=== PATIENT | male | born 1970 | race Hispanic/Latino ===

== ENCOUNTER 2016-06-20 11:40 | Emergency (ER) | payer SELFPAY ==
[2016-06-20 12:02] VITALS: BP 136/88; RESP 18; TEMP 98.5; O2SAT 100
--- NOTE | 2016-06-20 12:23 | C.PDOC ---
History Of Present Illness A 46 year old male comes in c/o pain and swelling to the lower right jaw since yesterday. Patient notes the pain as a 10/10 with association of swelling and tenderness to the angle of the jaw. Patient denies fever, chills, nausea, vomiting, trauma, or any other complaints. Time Seen by Provider: 06/20/16 11:57 Chief Complaint (Nursing): Dental Pain History Per: Patient History/Exam Limitations: no limitations Onset/Duration Of Symptoms: Days Current Symptoms Are (Timing): Still Present Severity: Severe Pain Scale Rating Of: 10 Quality: Positive for: "Pain" Recent travel outside of the [place]: No Additional History Per: Patient Past Medical History Reviewed: Historical Data, Nursing Documentation, Vital Signs Vital Signs: Last Vital Signs Temp 98.5 F 06/20/16 11:56 Pulse 86 06/20/16 11:56 Resp 18 06/20/16 11:56 BP 136/88 06/20/16 11:56 Pulse Ox 100 06/20/16 12:25 - Medical History PMH: Anxiety, Bronchitis, COPD, Depression, Gastritis, HTN, Seizures - [facility] Procedures APPLICATION OF SPLINT (09/30/14) Family History: States: Unknown Family Hx - Social History Hx Tobacco Use: Yes Hx Alcohol Use: Yes (No longer drinks alcohol.) Hx Substance Use: Yes (stopped many yrs ago) - Immunization History Hx Tetanus Toxoid Vaccination: Yes Hx Influenza Vaccination: Yes Hx Pneumococcal Vaccination: No Review Of Systems Except As Marked, All Systems Reviewed And Found Negative. Constitutional: Negative for: Fever, Chills, Other (Trauma) Gastrointestinal: Negative for: Nausea, Vomiting Musculoskeletal: Positive for: Other (Lower right jaw pain and swelling) Physical Exam - Physical Exam Appears: Non-toxic, No Acute Distress Skin: Warm, Dry Head: Atraumatic, Normacephalic Eye(s): bilateral: Normal Inspection Teeth: No Normal Dentition (Poor dentition), Caries (Muiltple dental cavities), Tender To Palpation, Other (Black teeth and tenderness. Dental abcess to othe lower jaw, non-fluctuance and no discharge.) Throat: Normal, No Exudate Neurological/Psych: Oriented x3, Normal Speech, Normal Cognition ED Course And Treatment O2 Sat by Pulse Oximetry: 100 (RA) Pulse Ox Interpretation: Normal Medical Decision Making Medical Decision Making: Impression: A 46 y/o male c/o right lower jaw pain and swelling since yesterday. Plans: -Harsh -Lucio-JM -Ultram -Reassess and disposition Disposition Counseled Patient/Family Regarding: Diagnosis, Need For Followup, Rx Given - Disposition Disposition: HOME/ ROUTINE Disposition Time: 12:22 Condition: GUARDED Additional Instructions: You need to follow up with dental services right away. Take you antibiotics. Return to the Emergency Department if you develop fever or any other concerns. Prescriptions: Penicillin VK [Pen-Vee K] 2 tab PO BID #28 tab traMADol/Acetaminophen [Ultracet 37.5/325 mg] 1 tab PO TID PRN #20 tab PRN Reason: pain Instructions: Dental Abscess (ED) Forms: General Discharge Instructions - POA Present On Arrival: None - Clinical Impression Clinical Impression: Dental abscess, Dental cavity
[2016-06-20 12:46] VITALS: PULSE 75
== END 2016-06-20 12:47 | disposition home or self-care (01) ==
LOC: SUPCPDRO 11:40 → C.ER 11:40
DX: K02.9 Dental caries, unspecified (principal); K04.7 Periapical abscess without sinus

== ENCOUNTER 2016-08-12 17:38 | Emergency (ER) | payer MEDICAID, OTHER ==
[2016-08-12 17:49] VITALS: BMI 21.2
[2016-08-12 17:53] VITALS: PULSE 76
--- NOTE | 2016-08-12 19:40 | C.PDOC ---
History Of Present Illness 46 year old male presents to the ED with complaints of headache and feeling tired after having a seizure today. Patient states he had a seizure witnessed by a friend who turned him onto his side. He notes a history of seizures with the last seizure being 8 months ago. Patient also notes running out of his medications for his seizures two days ago. He denies the use of any new medications, dysuria, fever, or head trauma. He states he feels well now and states he feels the same as he always does after seizure. Time Seen by Provider: 08/12/16 19:07 Chief Complaint (Nursing): Seizure Past Medical History Vital Signs: Last Vital Signs Temp 98.6 F 08/12/16 19:52 Pulse 76 08/12/16 19:52 Resp 18 08/12/16 19:52 BP 129/77 08/12/16 19:52 Pulse Ox 97 08/12/16 20:41 - Medical History PMH: Anxiety, Bronchitis, COPD, Depression, Gastritis, HTN, Seizures - [facility] Procedures APPLICATION OF SPLINT (09/30/14) Family History: States: Unknown Family Hx - Social History Hx Tobacco Use: Yes Hx Alcohol Use: No (No longer drinks alcohol.) Hx Substance Use: No (stopped many yrs ago) - Immunization History Hx Tetanus Toxoid Vaccination: Yes Hx Influenza Vaccination: Yes Hx Pneumococcal Vaccination: No Review Of Systems Except As Marked, All Systems Reviewed And Found Negative. Constitutional: Negative for: Fever Cardiovascular: Negative for: Chest Pain Physical Exam - Physical Exam Additional Physical Exam Comments: Constitutional: No acute distress. Head: Normocephalic. Atraumatic. Eyes: PERRL. EOMI. ENT: Moist mucous membranes. Normal appearing tongue with no bite. Neck: Supple. Normal ROM. Cardiovascular: Regular rate. Radial pulse 2+ bilaterally. Chest: No tenderness. Respiratory: Clear to auscultation bilaterally. GI: Soft. Nontender. Nondistended. Back: No CVA tenderness. Musculoskeletal: No tenderness or swelling of extremities. Skin: No rash. Neurologic: Alert, no focal deficit. Normal speech. Normal cognition. Normal motor. Normal sensation to light touch. Gait steady. ED Course And Treatment O2 Sat by Pulse Oximetry: 97 (room air ) Medical Decision Making Medical Decision Making: Patient with seizure disorder with seizure today, not on medication for 2 days, states he can follow up with PMD for refill this week, will give short term refill and 1 dose here. Patient without other symptoms concerning for other cause. Discharged home, return to ER for worsening pain, dyspnea, vomiting, fever, stiff neck, recurrent seizure, or any other problem. Disposition - Disposition Disposition: HOME/ ROUTINE Disposition Time: 19:40 Condition: STABLE Prescriptions: carBAMazepine [TEGretol] 200 mg PO BID #14 tab Instructions: Epilepsy (ED) - Clinical Impression Clinical Impression: Seizure - Scribe Statement The provider has reviewed the documentation as recorded by the Maggieibcate Wagner All medical record entries made by the Emilio were at my direction and personally dictated by me. I have reviewed the chart and agree that the record accurately reflects my personal performance of the history, physical exam, medical decision making, and the department course for this patient. I have also personally directed, reviewed, and agree with the discharge instructions and disposition.
[2016-08-12 19:52] VITALS: BP 129/77; RESP 18; TEMP 98.6
[2016-08-12 20:37] VITALS: O2SAT 97
--- NOTE | 2016-08-16 11:06 | CARD ---
APPROVED REPORT EKG Measurement Heart [id number] <Conclusion> Normal sinus rhythm ST elevation, probably due to early repolarization Borderline ECG
== END 2016-08-12 19:52 | disposition home or self-care (01) ==
LOC: C.ER 17:38
DX: R56.9 Unspecified convulsions (principal)

== ENCOUNTER 2016-09-24 02:31 | Emergency (ER) | payer MEDICAID, OTHER ==
[2016-09-24 02:32] VITALS: BMI 20.5
--- NOTE | 2016-09-24 04:16 | C.PDOC ---
History Of Present Illness 46 y/o male presents to emergency department with complaints of cough and chest congestion for 9 days. Patient states he was taking Theraflu with mild relief, but symptoms persisted. Patient also c/o mild SOB when he lies down, but no SOB otherwise. Denies fever, sick contacts, or recent travel. Time Seen by Provider: 09/24/16 02:51 Chief Complaint (Nursing): Cough, Cold, Congestion History Per: Patient History/Exam Limitations: no limitations Onset/Duration Of Symptoms: Days Current Symptoms Are (Timing): Still Present Sick Contacts (Context): None Associated Symptoms: Cough. denies: Fever, Vomiting, Diarrhea Recent travel outside of the [place]: No Past Medical History Reviewed: Historical Data, Nursing Documentation, Vital Signs Vital Signs: Last Vital Signs Temp 97.9 F 09/24/16 02:41 Pulse 80 09/24/16 02:41 Resp 14 09/24/16 02:41 BP 112/68 09/24/16 02:41 Pulse Ox 95 09/24/16 04:18 - Medical History PMH: Anxiety, Bronchitis, COPD, Depression, Gastritis, HTN, Seizures - [facility] Procedures APPLICATION OF SPLINT (09/30/14) Family History: States: Unknown Family Hx - Social History Hx Tobacco Use: Yes Hx Alcohol Use: No (No longer drinks alcohol.) Hx Substance Use: No (stopped many yrs ago) - Immunization History Hx Tetanus Toxoid Vaccination: Yes Hx Influenza Vaccination: Yes Hx Pneumococcal Vaccination: No Review Of Systems Except As Marked, All Systems Reviewed And Found Negative. Constitutional: Negative for: Fever, Chills ENT: Negative for: Throat Pain, Throat Swelling Cardiovascular: Negative for: Chest Pain, Palpitations Respiratory: Positive for: Cough, Other (+chest congestion). Negative for: Shortness of Breath, Wheezing Gastrointestinal: Negative for: Nausea, Vomiting, Abdominal Pain, Diarrhea Skin: Negative for: Rash Neurological: Negative for: Headache, Dizziness Physical Exam - Physical Exam Appears: Non-toxic, No Acute Distress Skin: Normal Color, Warm, Dry Head: Atraumatic, Normacephalic Oral Mucosa: Moist Throat: Normal, No Erythema, No Exudate Neck: Supple Chest: Symmetrical Cardiovascular: Rhythm Regular Respiratory: No Accessory Muscle Use, Rhonchi, No Wheezing, Other (chest congestion) Gastrointestinal/Abdominal: Soft, No Tenderness, No Guarding, No Rebound Back: Normal Inspection Extremity: Normal ROM, Capillary Refill (< 2 sec. ) Extremity: Bilateral: Normal Color And Temperature Neurological/Psych: Oriented x3, Normal Speech, Normal Cognition ED Course And Treatment O2 Sat by Pulse Oximetry: 95 (RA) Pulse Ox Interpretation: Normal - Radiology CXR: Interpreted by Me CXR Interpretation: Yes: Infiltrates (Right Lower Lobe) Progress Note: CxR and plan of treatment discussed with patient, who agrees with plan. Pt instructed to return to ER w/o fail if chest or back pain, SOB, fever, hemoptysis or worse Disposition - Disposition Referrals: [facility] at [facility] [Outside] Disposition Time: 04:44 Condition: STABLE Additional Instructions: Increase PO fluids Take all meds prescribed Follow up with PMD or clinic Return to ER if worse Prescriptions: Albuterol HFA [Ventolin HFA 90 mcg/actuation (8 g)] 2 puff IH QID #1 inhaler Doxycycline Hyclate 100 mg PO BID #14 capsule predniSONE [Prednisone] 40 mg PO DAILY #8 tab Promethazine/Codeine [Codeine/Promethazine 10 MG/5 Ml-6.25 MG/5 Ml] 5 ml PO QID #100 ml Instructions: Bacterial Pneumonia (ED) Forms: [employer] (Indian) - Clinical Impression Clinical Impression: Pneumonia - PA / SILVER CHASER / Resident Statement MD/DO has reviewed & agrees with the documentation as recorded. - Scribe Statement The provider has reviewed the documentation as recorded by the Scribe Kem Prieto All medical record entries made by the Scribe were at my direction and personally dictated by me. I have reviewed the chart and agree that the record accurately reflects my personal performance of the history, physical exam, medical decision making, and the department course for this patient. I have also personally directed, reviewed, and agree with the discharge instructions and disposition.
[2016-09-24] MEDS ORDERED: cefTRIAXone (Rocephin) 250 mg Inj IM STA (04:18)
[2016-09-24] MEDS ORDERED: cefTRIAXone 1 gm in Water For Injection 2.1 ML IM ONE (04:19)
[2016-09-24] MEDS ORDERED: Promethazine/Cod 6.25mg-10mg/5ml Syr UD ONE (04:45)
[2016-09-24] MEDS ORDERED: Promethazine/Cod 6.25mg-10mg/5ml Syr UD PO STA (05:00)
[2016-09-24 05:10] VITALS: BP 114/70; PULSE 76; RESP 19; TEMP 97.7; O2SAT 98
--- NOTE | 2016-09-24 08:11 | RAD ---
HISTORY: cough, SOB COMPARISON: None available. TECHNIQUE: Chest PA and lateral FINDINGS: LUNGS: Right middle and lower lobe airspace opacities suspicious for pneumonia. Please note that chest x-ray has limited sensitivity for the detection of pulmonary masses. PLEURA: No significant pleural effusion identified. No definite pneumothorax . CARDIOVASCULAR: The cardiomediastinal silhouette appears within normal limits of size. OSSEOUS STRUCTURES: No acute osseous abnormality identified. VISUALIZED UPPER ABDOMEN: Unremarkable. OTHER FINDINGS: None. IMPRESSION: Right middle and lower lobe airspace opacities suspicious for pneumonia. Recommend follow-up to assess for complete resolution.
== END 2016-09-24 05:10 | disposition home or self-care (01) ==
LOC: C.ER 02:31
DX: J18.9 Pneumonia, unspecified organism (principal); Z72.0 Tobacco use
CPT/HCPCS: 71020; 96372; 99284; J0696

== ENCOUNTER 2016-11-22 00:08 | Emergency (ER) | payer MEDICAID ==
[2016-11-22 00:08] VITALS: BMI 20.5
--- NOTE | 2016-11-22 01:31 | C.PDOC ---
History Of Present Illness 48 y/o female c/o itchy rash to the bilateral arms and right leg for 3 days. Patient suspects it to be poison elissa. Denies SOB, chest pain, fever, or chills. Time Seen by Provider: 11/22/16 01:22 Chief Complaint (Nursing): Abnormal Skin Integrity History Per: Patient History/Exam Limitations: no limitations Onset/Duration Of Symptoms: Days (3) Current Symptoms Are (Timing): Still Present Quality Of Symptoms: Itching Recent travel outside of the [place]: No Additional History Per: Patient Past Medical History Reviewed: Historical Data, Nursing Documentation, Vital Signs Vital Signs: Last Vital Signs Temp 98.6 F 11/22/16 01:40 Pulse 71 11/22/16 01:40 Resp 16 11/22/16 01:40 BP 105/66 11/22/16 01:40 Pulse Ox 98 11/22/16 01:40 - Medical History PMH: Anxiety, Bronchitis, COPD, Depression, Gastritis, HTN, Seizures - [facility] Procedures APPLICATION OF SPLINT (09/30/14) Family History: States: Unknown Family Hx - Social History Hx Tobacco Use: Yes Hx Alcohol Use: No (No longer drinks alcohol.) Hx Substance Use: No (stopped many yrs ago) - Immunization History Hx Tetanus Toxoid Vaccination: Yes Hx Influenza Vaccination: Yes Hx Pneumococcal Vaccination: No Review Of Systems Except As Marked, All Systems Reviewed And Found Negative. Constitutional: Negative for: Fever, Chills Cardiovascular: Negative for: Chest Pain Respiratory: Negative for: Shortness of Breath Skin: Positive for: Rash Physical Exam - Physical Exam Appears: Non-toxic, No Acute Distress Skin: Warm, Dry, Rash (Linear demarkated rash to the bilateral arms, left greater than right. Some reash on the right thigh. Consistent with poison.) Head: Atraumatic, Normacephalic Cardiovascular: Rhythm Regular Respiratory: Normal Breath Sounds, No Rales, No Rhonchi, No Wheezing Neurological/Psych: Oriented x3 ED Course And Treatment O2 Sat by Pulse Oximetry: 97 (RA) Pulse Ox Interpretation: Normal Medical Decision Making Medical Decision Making: poison elissa L>R arm and R leg x 3 days temovate steroid cream applied. instructed to apply BID Disposition Doctor Will See Patient In The: Office Counseled Patient/Family Regarding: Studies Performed, Diagnosis - Disposition Referrals: [facility] [Outside] [facility] [Outside] Disposition: HOME/ ROUTINE Disposition Time: 01:33 Condition: GOOD Additional Instructions: apply Temovate ointment 0.05% to the poison elissa areas twice a day, usually for about 5 days. Cool compresses as needed. Follow-up in our Clinic as needed. Prescriptions: Clobetasol 0.05% [Temovate 0.05% OINTMENT] 15 applic EXT BID #1 tube Instructions: Poison Elissa (ED) Forms: [employer] (Micronesian) - Clinical Impression Clinical Impression: Contact dermatitis - Scribe Statement The provider has reviewed the documentation as recorded by the Scribe Wilton horowitz All medical record entries made by the Scribe were at my direction and personally dictated by me. I have reviewed the chart and agree that the record accurately reflects my personal performance of the history, physical exam, medical decision making, and the department course for this patient. I have also personally directed, reviewed, and agree with the discharge instructions and disposition.
[2016-11-22 02:49] VITALS: BP 105/66; PULSE 71; RESP 16; TEMP 98.6
[2016-11-22 03:45] VITALS: O2SAT 97
== END 2016-11-22 01:45 | disposition home or self-care (01) ==
LOC: C.ER 00:08
DX: L25.9 Unspecified contact dermatitis, unspecified cause (principal)

== ENCOUNTER 2017-01-02 18:17 | Emergency (ER) | payer MEDICAID ==
[2017-01-02 18:17] VITALS: BMI 20.5
--- NOTE | 2017-01-02 19:05 | C.PDOC ---
History Of Present Illness 46-year-old male presents to the ED complaining of body aches and fever for the past few days. Symptoms are associated with coughing, patient reports being diagnosed with pneumonia last week. Also complains of diarrhea but no vomiting or dysuria. PMD: non [facility] provider Time Seen by Provider: 01/02/17 19:00 Chief Complaint (Nursing): Flu-like Symptoms History Per: Patient History/Exam Limitations: no limitations Onset/Duration Of Symptoms: Days (x 3) Current Symptoms Are (Timing): Still Present Past Medical History Reviewed: Historical Data, Nursing Documentation, Vital Signs Vital Signs: Last Vital Signs Temp 99 F 01/02/17 20:08 Pulse 107 H 01/02/17 18:20 Resp 22 01/02/17 18:20 BP 115/82 01/02/17 18:20 Pulse Ox 100 01/02/17 20:53 - Medical History PMH: Anxiety, Bronchitis, COPD, Depression, Gastritis, HTN, Seizures - [facility] Procedures APPLICATION OF SPLINT (09/30/14) Family History: States: Unknown Family Hx - Social History Hx Tobacco Use: Yes Hx Alcohol Use: No (No longer drinks alcohol.) Hx Substance Use: No (stopped many yrs ago) - Immunization History Hx Tetanus Toxoid Vaccination: No Hx Influenza Vaccination: No Hx Pneumococcal Vaccination: No Review Of Systems Except As Marked, All Systems Reviewed And Found Negative. Constitutional: Positive for: Fever, Other (body aches) Respiratory: Positive for: Cough Gastrointestinal: Positive for: Diarrhea. Negative for: Vomiting Genitourinary: Negative for: Dysuria Physical Exam - Physical Exam Appears: Non-toxic, No Acute Distress Skin: Normal Color, Warm, Dry Head: Atraumatic, Normacephalic Eye(s): bilateral: Normal Inspection, PERRL, EOMI Neck: Normal, Supple Cardiovascular: Rhythm Regular, No Murmur Respiratory: Normal Breath Sounds, No Rales, Rhonchi Gastrointestinal/Abdominal: Normal Exam, Soft, No Tenderness Extremity: Bilateral: Atraumatic, Normal Color And Temperature, Normal ROM Neurological/Psych: Oriented x3, Normal Speech Gait: Steady ED Course And Treatment - Laboratory Results Result Diagrams: 01/02/17 19:27 01/02/17 19:27 ECG: Interpreted By Me, Viewed By Me ECG Rhythm: Sinus Tachycardia ECG Interpretation: No Acute Changes Interpretation Of ECG: Sinus tachycardia, no acute changes. Rate From EC O2 Sat by Pulse Oximetry: 100 (RA) Pulse Ox Interpretation: Normal - Radiology CXR: Interpreted by Me, Viewed By Me CXR Interpretation: Yes: No Acute Disease, Other (inc. bronchovasscular markings.). No: Infiltrates Progress Note: Ordered blood work, chest x-ray, and urinalysis. Patient given Tylenol, 975 mg PO. Pending reassessment. Disposition Counseled Patient/Family Regarding: Diagnosis - Disposition Referrals: [facility] at [facility] [Outside] Disposition: HOME/ ROUTINE Disposition Time: 20:48 Condition: STABLE Prescriptions: Azithromycin 500 mg PO DAILY #7 tablet guaiFENesin/Dextromethorphan [guaiFENesin-DM] 10 ml PO TID #120 ml Ibuprofen [Motrin] 1 tab PO TID PRN #20 tab PRN Reason: Pain Instructions: Upper Respiratory Infection (ED), Acute Bronchitis (ED), Fever in Adults (ED) Forms: [facility] (Macedonian) - POA Present On Arrival: None - Clinical Impression Clinical Impression: Upper respiratory infection, Bronchitis - Scribe Statement The provider has reviewed the documentation as recorded by the Scribcate Hawkins All medical record entries made by the Maggieibe were at my direction and personally dictated by me. I have reviewed the chart and agree that the record accurately reflects my personal performance of the history, physical exam, medical decision making, and the department course for this patient. I have also personally directed, reviewed, and agree with the discharge instructions and disposition.
[2017-01-02 19:30] LABS: BASO # 0.1 K/uL (0.0-0.2); BASO % 0.5 % (0.0-2.0); HEMATOCRIT 37.1 % (35.0-51.0); LYMPH # 1.6 K/uL (1.0-4.3); LYMPH % 13.3 % (20.0-40.0); MEAN CELL VOLUME 84.2 fL (80.0-94.0); MEAN CORPUSCULAR HEMOGLOBIN 27.5 pg (27.0-31.0); MEAN CORPUSCULAR HGB CONC 32.7 g/dL (33.0-37.0); MEAN PLATELET VOLUME 7.1 fL (7.2-11.7); MONO # 0.7 K/uL (0.0-0.8); RED CELL DISTRIBUTION WIDTH 16.3 % (11.5-14.5); WHITE BLOOD COUNT 12.1 K/uL (4.8-10.8)
[2017-01-02 19:41] LABS: RBC URINE < 1 /hpf (0-3); URINE BACTERIA FEW (<OCC); URINE BILIRUBIN NEGATIVE (NEGATIVE); URINE BLOOD NEGATIVE (NEGATIVE); URINE COLOR Yellow (YELLOW); URINE GLUCOSE (UA) NORMAL (Normal); URINE KETONE NEGATIVE (NEGATIVE); URINE LEUKOCYTE ESTERASE NEG Leu/uL (Negative); URINE PROTEIN NEGATIVE (NEGATIVE); URINE UROBILINOGEN NORMAL mg/dL (0.2-1.0); WBC URINE 1 /hpf (0-5)
[2017-01-02 19:42] LABS: ALKALINE PHOSPHATASE 143 U/L (38-126); ALT/SGPT 65 U/L (21-72); AST/SGOT 28 U/L (17-59); BILIRUBIN,TOTAL 0.5 mg/dL (0.2-1.3); BLOOD UREA NITROGEN 10 mg/dL (9-20); CALCIUM 8.4 mg/dl (8.6-10.4); CARBON DIOXIDE 27 mmol/L (22-30); CHLORIDE 96 mmol/L (98-107); GFR AFRICAN-AMERICAN > 60; GLUCOSE,RANDOM 84 mg/dL (75-110); POTASSIUM 3.9 mmol/L (3.6-5.2); SODIUM 135 mmol/L (132-148); TOTAL PROTEIN 8.6 g/dL (6.3-8.3)
[2017-01-02 20:52] VITALS: TEMP 99
[2017-01-02 21:12] VITALS: BP 118/79; PULSE 78; RESP 16; O2SAT 99
--- NOTE | 2017-01-03 08:43 | RAD ---
HISTORY: SOB COMPARISON: 09/24/2016 TECHNIQUE: Chest PA and lateral FINDINGS: LUNGS: There is an infiltrate in the right middle lobe. On the previous study from September there is a more extensive right middle lobe infiltrate. The current study could represent a recurrent pneumonia or residual scarring PLEURA: No significant pleural effusion identified. No pneumothorax apparent. CARDIOVASCULAR: Normal. OSSEOUS STRUCTURES: No significant abnormalities. VISUALIZED UPPER ABDOMEN: Normal. OTHER FINDINGS: None. IMPRESSION: There is an infiltrate in the right middle lobe. On the previous study from September there is a more extensive right middle lobe infiltrate. The current study could represent a recurrent pneumonia or residual scarring
== END 2017-01-02 21:12 | disposition home or self-care (01) ==
LOC: C.ER 18:17
DX: J06.9 Acute upper respiratory infection, unspecified (principal); J40 Bronchitis, not specified as acute or chronic

== ENCOUNTER 2017-02-24 13:27 | Emergency (ER) | payer MEDICAID ==
[2017-02-24 13:28] VITALS: BMI 20.5
--- NOTE | 2017-02-24 13:31 | C.PDOC ---
History Of Present Illness 47-year-old male, found by BLS being unresponsive in hotel bathroom. Patient received Narcan and woke up immediately. Upon arrival, patient is awake and alert. Denies numbness/weakness, trauma, SI/HI, or any other associated symptoms. No other complaints at this time. Time Seen by Provider: 02/24/17 13:29 History Per: Patient, EMS History/Exam Limitations: no limitations Current Symptoms Are (Timing): Better Past Medical History Reviewed: Historical Data, Nursing Documentation, Vital Signs Vital Signs: Last Vital Signs Temp 98.5 F 02/24/17 13:33 Pulse 88 02/24/17 13:33 Resp 20 02/24/17 13:33 BP 133/82 02/24/17 13:33 Pulse Ox 100 02/24/17 13:33 - Medical History PMH: Anxiety, Bronchitis, COPD, Depression, Gastritis, HTN, Seizures - [facility] Procedures APPLICATION OF SPLINT (09/30/14) Family History: States: No Known Family Hx - Social History Hx Tobacco Use: Yes Hx Alcohol Use: No (No longer drinks alcohol.) Hx Substance Use: No (stopped many yrs ago) - Immunization History Hx Tetanus Toxoid Vaccination: No Hx Influenza Vaccination: No Hx Pneumococcal Vaccination: No Review Of Systems Except As Marked, All Systems Reviewed And Found Negative. Constitutional: Negative for: Fever Cardiovascular: Negative for: Chest Pain, Palpitations Respiratory: Negative for: Shortness of Breath Gastrointestinal: Negative for: Nausea, Vomiting Neurological: Negative for: Weakness, Numbness, Altered Mental Status, Headache , Dizziness Psych: Negative for: Suicidal ideation Physical Exam - Physical Exam Appears: Non-toxic, No Acute Distress Skin: Warm, Dry, No Rash Head: Atraumatic, Normacephalic Eye(s): bilateral: Normal Inspection, PERRL, EOMI Nose: Normal Oral Mucosa: Moist Lips: Normal Appearing Neck: Normal ROM Cardiovascular: Rhythm Regular, No Murmur Respiratory: Normal Breath Sounds, No Accessory Muscle Use Gastrointestinal/Abdominal: Soft, No Tenderness Back: Normal Inspection Extremity: Normal ROM Neurological/Psych: Oriented x3, Normal Speech Gait: Steady Medical Decision Making Medical Decision Making: Patient is requesting to leave. Gait is steady. He will be discharged home for outpatient f/u in clinic. Asked to return immediately for any worsening symptoms. Disposition - Disposition Referrals: [facility] [Outside] Disposition: HOME/ ROUTINE Disposition Time: 13:30 Condition: GOOD Additional Instructions: Follow up with the medical doctor within 1-2 days. Return if worsened. Instructions: Narcotic Abuse (ED) Forms: [email or web address] (Arabic) - Clinical Impression Clinical Impression: Opiate abuse, episodic - Scribe Statement The provider has reviewed the documentation as recorded by the Scribe (Malathi Machado) All medical record entries made by the Scribe were at my direction and personally dictated by me. I have reviewed the chart and agree that the record accurately reflects my personal performance of the history, physical exam, medical decision making, and the department course for this patient. I have also personally directed, reviewed, and agree with the discharge instructions and disposition.
[2017-02-24 13:34] VITALS: BP 133/82; PULSE 88; RESP 20; TEMP 98.5; O2SAT 100
== END 2017-02-24 14:02 | disposition home or self-care (01) ==
LOC: C.ER 13:27
DX: F11.10 Opioid abuse, uncomplicated (principal); I10 Essential (primary) hypertension; J44.9 Chronic obstructive pulmonary disease, unspecified; Z87.891 Personal history of nicotine dependence

== ENCOUNTER 2017-03-01 23:28 | Emergency (ER) | payer MEDICAID ==
[2017-03-01 23:29] VITALS: BMI 20.5
[2017-03-02 00:39] VITALS: O2SAT 99
[2017-03-02 02:02] VITALS: RESP 18
--- NOTE | 2017-03-02 02:29 | C.PDOC ---
History Of Present Illness 47 y/o male presents to the ED requesting medicine refill. Patient states he was recently released from custodial and needs a refill for Klonopin to manage his anxiety. Patient has history of heroin and opiate abuse. He has no complaints at this time. Time Seen by Provider: 03/02/17 01:30 Chief Complaint (Nursing): Anxiety History Per: Patient History/Exam Limitations: no limitations Onset/Duration Of Symptoms: Hrs Current Symptoms Are (Timing): Still Present Suicide/Self Injury Attempted (Context): None Modifying Factor(s): None Associated Symptoms: Anger Involuntary Hold By: None Recent travel outside of the [place]: No Additional History Per: Patient Past Medical History Reviewed: Historical Data, Nursing Documentation, Vital Signs Vital Signs: Last Vital Signs Temp 98.5 F 03/02/17 04:15 Pulse 85 03/02/17 04:15 Resp 18 03/02/17 04:15 BP 134/79 03/02/17 04:15 Pulse Ox 99 03/02/17 04:15 - Medical History PMH: Anxiety, Bronchitis, COPD, Depression, Gastritis, HTN, Seizures Surgical History: No Surg Hx - [facility] Procedures APPLICATION OF SPLINT (09/30/14) Family History: States: Unknown Family Hx - Social History Hx Tobacco Use: Yes Hx Alcohol Use: No (No longer drinks alcohol.) Hx Substance Use: Yes (stopped many yrs ago) - Immunization History Hx Tetanus Toxoid Vaccination: No Hx Influenza Vaccination: No Hx Pneumococcal Vaccination: No Review Of Systems Psych: Positive for: Anxiety Physical Exam - Physical Exam Appears: Non-toxic, No Acute Distress Skin: Normal Color, Warm, Dry Chest: Symmetrical, No Deformity, No Tenderness Cardiovascular: Rhythm Regular, No Murmur Respiratory: Normal Breath Sounds, No Rales, No Rhonchi, No Wheezing Extremity: Normal ROM, Capillary Refill (less than 2 seconds ) Neurological/Psych: Oriented x3, Normal Speech, Normal Cognition ED Course And Treatment O2 Sat by Pulse Oximetry: 99 (on RA) Pulse Ox Interpretation: Normal Progress Note: klonopin PO administered. Patient advised to f/u with his PMD for medicine refill. Disposition Counseled Patient/Family Regarding: Diagnosis, Need For Followup - Disposition Referrals: [facility] at [facility] [Outside] Disposition: HOME/ ROUTINE Disposition Time: 02:27 Condition: STABLE Additional Instructions: Please follow up with PMD Return to ER if worse Instructions: Anxiety (ED) Forms: [employer] (Moroccan) - Clinical Impression Clinical Impression: Anxiety - PA / [employer]LEACH [employer]ILER [employer]ER / Resident Statement MD/DO has reviewed & agrees with the documentation as recorded. - Scribe Statement The provider has reviewed the documentation as recorded by the Scribe (Paty Allen) All medical record entries made by the Scribe were at my direction and personally dictated by me. I have reviewed the chart and agree that the record accurately reflects my personal performance of the history, physical exam, medical decision making, and the department course for this patient. I have also personally directed, reviewed, and agree with the discharge instructions and disposition.
[2017-03-02 04:16] VITALS: BP 134/79; PULSE 85; TEMP 98.5
== END 2017-03-02 04:20 | disposition home or self-care (01) ==
LOC: C.ER 23:28
DX: F41.9 Anxiety disorder, unspecified (principal); Z87.891 Personal history of nicotine dependence; I10 Essential (primary) hypertension; J44.9 Chronic obstructive pulmonary disease, unspecified

== ENCOUNTER 2017-07-14 14:19 | Emergency (ER) | payer SELFPAY ==
[2017-07-14 14:19] VITALS: BMI 20.5
[2017-07-14 14:30] VITALS: RESP 18; TEMP 98.8; O2SAT 95
--- NOTE | 2017-07-14 15:38 | RAD ---
HISTORY: COMPARISON: 01/02/2017 TECHNIQUE: Chest PA and lateral FINDINGS: LINES AND TUBES: None. LUNG AND PLEURA: The lungs are hyperinflated and there is peribronchial thickening with chronic changes in both lungs. There is confluent airspace disease in the right lower lobe. No focal consolidation. HEART AND MEDIASTINUM: The heart is not enlarged. The hilar and mediastinal contours are within normal limits. SKELETAL STRUCTURES: The bony structures are within normal limits for the patient's age. VISUALIZED UPPER ABDOMEN: Normal. OTHER FINDINGS: None. IMPRESSION: No lobar pneumonia. COPD. Confluent airspace disease in the right lower lobe may represent subsegmental atelectasis or mucus plugging however superimposed pneumonia cannot be excluded. Follow-up is advised.
--- NOTE | 2017-07-14 16:18 | C.PDOC ---
History Of Present Illness 47-year-old male, presents to the emergency department with complaints of subjective fever, cough, and body aches over the past 2-3 days. Pt reports he is a smoker. He has a Hx of pneumonia and Bronchitis in the past. Denies nausea/ vomiting, recent travel, rash or any other associated symptoms. No other complaints at this time. Time Seen by Provider: 07/14/17 14:30 Chief Complaint (Nursing): Cough, Cold, Congestion History Per: Patient History/Exam Limitations: no limitations Onset/Duration Of Symptoms: Days Current Symptoms Are (Timing): Still Present Past Medical History Reviewed: Historical Data, Nursing Documentation, Vital Signs Vital Signs: Last Vital Signs Temp 98.8 F 07/14/17 14:27 Pulse 69 07/14/17 16:25 Resp 18 07/14/17 16:25 BP 98/60 L 07/14/17 16:25 Pulse Ox 95 07/14/17 18:56 - Medical History PMH: Anxiety, Bronchitis, COPD, Depression, Gastritis, HTN, Seizures - [facility] Procedures APPLICATION OF SPLINT (09/30/14) Family History: States: No Known Family Hx - Social History Hx Tobacco Use: Yes Hx Alcohol Use: No Hx Substance Use: Yes ("SOMETIMES") - Immunization History Hx Tetanus Toxoid Vaccination: Yes Hx Influenza Vaccination: Yes Hx Pneumococcal Vaccination: No Review Of Systems Constitutional: Positive for: Fever, Chills, Malaise Cardiovascular: Negative for: Chest Pain Respiratory: Positive for: Cough. Negative for: Shortness of Breath, Sputum Gastrointestinal: Negative for: Nausea, Vomiting Skin: Negative for: Rash Neurological: Negative for: Weakness, Numbness, Headache, Dizziness Physical Exam - Physical Exam Appears: Non-toxic, No Acute Distress Skin: Normal Color, Warm, Dry, No Rash Head: Normacephalic Eye(s): bilateral: Normal Inspection Nose: Normal Oral Mucosa: Moist Lips: Normal Appearing Neck: Normal ROM Cardiovascular: Rhythm Regular, No Murmur Respiratory: No Decreased Breath Sounds, No Accessory Muscle Use, Rales, No Rhonchi, No Stridor, No Wheezing Gastrointestinal/Abdominal: Soft, No Tenderness, No Guarding, No Rebound Extremity: Normal ROM, No Deformity, No Swelling Neurological/Psych: Oriented x3, Normal Speech ED Course And Treatment O2 Sat by Pulse Oximetry: 95 (on RA) Pulse Ox Interpretation: Normal - Radiology CXR: Interpreted by Me CXR Interpretation: Yes: Other (COPD) Medical Decision Making Medical Decision Making: CXR ordered and reviewed. Patient treated with Motrin, Tessalon, Zithromax and Prednisone. On re-exam, the patient reports improvement of symptoms. Lungs are CTA, heart is RRR, abdomen is soft, non-tender and tolerating PO well. Ambulatory in the ED with steady gait. Follow up with the medical doctor/clinic within 1-2 days. Return if worsened. Disposition - Disposition Referrals: [facility] at [facility] [Outside] Disposition: HOME/ ROUTINE Disposition Time: 16:14 Condition: STABLE Additional Instructions: Follow up with the medical doctor/clinic within 1-2 days. Return if worsened. Prescriptions: Albuterol HFA [Ventolin HFA 90 mcg/actuation (8 g)] 1 puff IH Q6 #100 puff Azithromycin [Zithromax] 250 mg PO DAILY #4 tab Benzonatate [Tessalon Perles] 200 mg PO TID PRN #21 sgl PRN Reason: Cough predniSONE [Prednisone] 20 mg PO BID #10 tab Spacer, Inhalation [Aerochamber] 1 dev IH Q4 #1 dev Instructions: Chronic Obstructive Pulmonary Disease (COPD), Including Emphysema Forms: [employer] (Bengali) - Clinical Impression Clinical Impression: COPD (chronic obstructive pulmonary disease), Bronchitis - Scribe Statement The provider has reviewed the documentation as recorded by the Scribe (Malathi Machado) All medical record entries made by the Scribe were at my direction and personally dictated by me. I have reviewed the chart and agree that the record accurately reflects my personal performance of the history, physical exam, medical decision making, and the department course for this patient. I have also personally directed, reviewed, and agree with the discharge instructions and disposition.
[2017-07-14 16:27] VITALS: BP 98/60; PULSE 69
== END 2017-07-14 16:26 | disposition home or self-care (01) ==
LOC: C.ER 14:19
DX: J44.9 Chronic obstructive pulmonary disease, unspecified (principal); I10 Essential (primary) hypertension; Z72.0 Tobacco use

== ENCOUNTER 2017-08-22 03:39 | Emergency (ER) | payer SELFPAY ==
[2017-08-22 03:40] VITALS: BMI 20.5
[2017-08-22] MEDS ORDERED: Naproxen 550 mg Tab PO STA (04:10)
--- NOTE | 2017-08-22 05:00 | C.PDOC ---
History Of Present Illness 47 year old male presents to the ED c/o pain and swelling of his right foot. Patient states he woke up today and noticed his right foot was swollen, had some redness which prompted the visit today. Patient denies known injury, fall, trauma, weakness, numbness, fever, chills. Time Seen by Provider: 08/22/17 04:02 Chief Complaint (Nursing): Lower Extremity Problem/Injury History Per: Patient History/Exam Limitations: no limitations Onset/Duration Of Symptoms: Hrs Current Symptoms Are (Timing): Still Present Recent travel outside of the [place]: No Additional History Per: Patient - Ankle/Foot Description Of Injury: Other Past Medical History Reviewed: Historical Data, Nursing Documentation, Vital Signs Vital Signs: Last Vital Signs Temp 98.8 F 08/22/17 04:30 Pulse 72 08/22/17 04:30 Resp 20 08/22/17 04:30 BP 153/91 H 08/22/17 04:30 Pulse Ox 97 08/22/17 04:30 - Medical History PMH: Anxiety, Bronchitis, COPD, Depression, Gastritis, HTN, Seizures Denies: Diabetes, Hepatitis, HIV, Sexually Transmitted Disease Surgical History: No Surg Hx - [facility] Procedures APPLICATION OF SPLINT (09/30/14) Family History: States: Unknown Family Hx - Social History Hx Tobacco Use: Yes Hx Alcohol Use: No Hx Substance Use: Yes ("SOMETIMES") - Immunization History Hx Tetanus Toxoid Vaccination: Yes Hx Influenza Vaccination: Yes Hx Pneumococcal Vaccination: No Review Of Systems Constitutional: Negative for: Fever, Chills Cardiovascular: Negative for: Chest Pain, Palpitations Respiratory: Negative for: Shortness of Breath Musculoskeletal: Positive for: Foot Pain Neurological: Negative for: Weakness, Numbness Physical Exam - Physical Exam Appears: Non-toxic, No Acute Distress Skin: Normal Color, Warm, Dry Head: Atraumatic, Normacephalic Eye(s): bilateral: Normal Inspection Neck: Normal ROM, Supple Extremity: Normal ROM, Tenderness (right lateral malleolus with some erythema), No Pedal Edema, No Calf Tenderness, Capillary Refill (< 2 seconds), No Deformity , Swelling (right lateral malleolus), No Other (warmth) Extremity: Bilateral: Atraumatic Pulses: Left Dorsalis Pedis: Normal, Right Dorsalis Pedis: Normal Neurological/Psych: Oriented x3, Normal Speech, Normal Motor, Normal Sensation Gait: Steady ED Course And Treatment Pulse Ox Interpretation: Normal - Other Rad Right ankle X-Ray X-Ray: Interpreted by Me, Viewed By Me Interpretation: no fracture or dislocation Progress Note: Impression: arthralgia vs gout arthritis. Plan: - Naproxen 550 mg PO. - Right foot X-Ray. - Clay wrap. Pt understand to follow up in clinic / PMD and naproxen PO given. Return precautions were discussed and understood by pt. Patient was placed on an clay wrap. Patient was advised to follow up with PMD for further evaluation. Disposition - Disposition Referrals: [facility] at [facility] [Outside] Disposition: HOME/ ROUTINE Disposition Time: 05:55 Condition: STABLE Additional Instructions: Take naproxen for pain Leg elevation/ Apply ICE to area Follow up in clinic Return to ER if worse Prescriptions: Colchicine 0.6 mg PO QID #10 tablet Naproxen [Naprosyn] 1 tab PO BID PRN #20 tab PRN Reason: Pain Instructions: Joint Pain, Gout (DC) Forms: [employer] (Spanish) - POA Present On Arrival: None - Clinical Impression Clinical Impression: Arthralgia of ankle, Gout attack - 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 - Scribe Statement The provider has reviewed the documentation as recorded by the Scribcate Fisher All medical record entries made by the Maggieibcate were at my direction and personally dictated by me. I have reviewed the chart and agree that the record accurately reflects my personal performance of the history, physical exam, medical decision making, and the department course for this patient. I have also personally directed, reviewed, and agree with the discharge instructions and disposition.
[2017-08-22 05:19] VITALS: PULSE 72; O2SAT 97
[2017-08-22] MEDS ORDERED: Naproxen 550 mg Tab PO ONE (05:24)
[2017-08-22 06:17] VITALS: BP 145/89; RESP 16; TEMP 98.9
--- NOTE | 2017-08-22 10:52 | RAD ---
PROCEDURE: Right Ankle Radiographs. HISTORY: pain and swelling lateral malleolus COMPARISON: None FINDINGS: BONES: No acute fracture. JOINTS: Ankle mortise maintained. Talar dome intact SOFT TISSUES: Lateral malleolar soft tissue swelling. Small ankle joint effusion. OTHER FINDINGS: None. IMPRESSION: Lateral malleolar soft tissue swelling and small ankle joint without demonstrated fracture or dislocation.
== END 2017-08-22 06:15 | disposition home or self-care (01) ==
LOC: C.ER 03:39
DX: M25.571 Pain in right ankle and joints of right foot (principal); M10.9 Gout, unspecified

== ENCOUNTER 2017-12-23 20:48 | Emergency (ER) | payer SELFPAY ==
[2017-12-23 20:49] VITALS: BMI 20.5
[2017-12-23 20:54] VITALS: RESP 18
[2017-12-23 20:57] VITALS: O2SAT 99
[2017-12-23] MEDS ORDERED: Sodium Chloride 0.9% 1,000 ML IV ONE (21:10)
--- NOTE | 2017-12-23 21:16 | C.PDOC ---
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 Reports he has a history of seizures. Reports compliance with seizure medications. Reports feeling well prior to syncopal episode and did not hit his head or sustain any other injuries with the incident. Chief Complaint (Nursing): Seizure History Per: Patient History/Exam Limitations: no limitations Recent Seizure Activity Began: Just Before Arrival Number Of Seizures: One Quality Of Seizure: Generalized Associated Symptoms: Incontinence Of Urine Past Medical History Reviewed: Historical Data, Nursing Documentation, Vital Signs Vital Signs: Last Vital Signs Temp 97.8 F 12/23/17 20:53 Pulse 61 12/23/17 20:53 Resp 18 12/23/17 20:53 BP 149/87 12/23/17 20:53 Pulse Ox 99 12/23/17 20:53 - Medical History PMH: Anxiety, Bronchitis, COPD, Depression, Gastritis, HTN, Seizures Denies: Diabetes, Hepatitis, HIV, Sexually Transmitted Disease Surgical History: No Surg Hx - [facility] Procedures APPLICATION OF SPLINT (09/30/14) Family History: States: Unknown Family Hx - Social History Hx Tobacco Use: Yes Hx Alcohol Use: No Hx Substance Use: Yes - Immunization History Hx Tetanus Toxoid Vaccination: Yes Hx Influenza Vaccination: Yes Hx Pneumococcal Vaccination: No Review Of Systems Except As Marked, All Systems Reviewed And Found Negative. Eyes: Negative for: Vision Change Cardiovascular: Negative for: Chest Pain, Palpitations Gastrointestinal: Negative for: Nausea, Vomiting Neurological: Negative for: Weakness, Numbness Physical Exam - Physical Exam Appears: Non-toxic Skin: Warm, Dry, No Rash Head: Atraumatic, Normacephalic, No Laceration Eye(s): bilateral: Normal Inspection Nose: Normal Oral Mucosa: Moist Neck: Supple Chest: Deformity Cardiovascular: Rhythm Regular Respiratory: Normal Breath Sounds, No Rales, No Rhonchi, No Wheezing Gastrointestinal/Abdominal: Soft, No Tenderness Extremity: Normal ROM Neurological/Psych: Oriented x3, Normal Speech Gait: Steady ED Course And Treatment - Laboratory Results Result Diagrams: 12/23/17 21:37 12/23/17 21:37 ECG: Interpreted By Me, Viewed By Me ECG Rhythm: Sinus Rhythm ECG Interpretation: Normal Interpretation Of ECG: NSR with sinus arrythmia Rate From EC O2 Sat by Pulse Oximetry: 99 (RA) Pulse Ox Interpretation: Normal Medical Decision Making Medical Decision Making: Plan - EKG - Bloodwork - IV fluids Disposition Counseled Patient/Family Regarding: Diagnosis - Disposition Referrals: [facility] at [facility] [Outside] Disposition: RELEASED IN POLICE CUSTODY Disposition Time: 22:36 Condition: STABLE Additional Instructions: medically cleared for incarceration with instruction and prescription to take medication. Prescriptions: carBAMazepine [TEGretol] 200 mg PO BID #30 tab Instructions: Seizures, Adult (DC) Forms: [employer] ([place] Citizen) - POA Present On Arrival: None - Clinical Impression Clinical Impression: Seizure disorder - Scribe Statement The provider has reviewed the documentation as recorded by the Scribe Sarah Johnson All medical record entries made by the Scribe were at my direction and personally dictated by me. I have reviewed the chart and agree that the record accurately reflects my personal performance of the history, physical exam, medical decision making, and the department course for this patient. I have also personally directed, reviewed, and agree with the discharge instructions and disposition.
[2017-12-23 21:40] LABS: BASO % 0.7 % (0.0-2.0); EOS # 0.1 K/uL (0.0-0.7); HEMOGLOBIN 12.5 g/dL (12.0-18.0); LYMPH # 1.4 K/uL (1.0-4.3); LYMPH % 20.3 % (20.0-40.0); MEAN CELL VOLUME 83.5 fL (80.0-94.0); MEAN CORPUSCULAR HEMOGLOBIN 28.1 pg (27.0-31.0); MEAN CORPUSCULAR HGB CONC 33.6 g/dL (33.0-37.0); MEAN PLATELET VOLUME 6.9 fL (7.2-11.7); MONO # 0.5 K/uL (0.0-0.8); NEUT # 4.7 K/uL (1.8-7.0); RBC 4.46 Mil/uL (4.40-5.90); RED CELL DISTRIBUTION WIDTH 14.7 % (11.5-14.5); WHITE BLOOD COUNT 6.7 K/uL (4.8-10.8)
[2017-12-23 21:56] LABS: ALB/GLOB RATIO 1.5 (1.0-2.1); ALBUMIN 4.1 g/dL (3.5-5.0); ALT/SGPT 33 U/L (21-72); AST/SGOT 29 U/L (17-59); BLOOD UREA NITROGEN 12 mg/dL (9-20); CALCIUM 8.2 mg/dl (8.6-10.4); GFR NON-AFRICAN AMERICAN > 60
[2017-12-23 22:46] LABS: BARBITURATES, UR NEGATIVE (NEGATIVE); BENZODIAZEPINES, UR NEGATIVE (NEGATIVE); PHENCYCLIDINE, UR NEGATIVE (NEGATIVE)
[2017-12-23 22:51] VITALS: BP 151/87; PULSE 63; TEMP 98
[2017-12-23 23:00] LABS: OPIATES, UR POSITIVE (NEGATIVE)
== END 2017-12-23 23:00 ==
LOC: C.ER 20:48
DX: G40.909 Epilepsy, unspecified, not intractable, without status epilepticus (principal)
CPT/HCPCS: 80053; 80156; 82948; 85025; 96360; 99285; G0480; J7030